=== PATIENT | female | born 1945 | race Caucasian/White ===

== ENCOUNTER 2018-07-21 12:11 | Day surgery (SDC) | payer MEDICARE, OTHER ==
[~2018-07-21] VITALS: Ht 167.6 cm; Wt 64.5 kg
[~2018-07-21 12:11] MED LIST: BARLEY LIFE; GARL1CAP11 PO; MULT-1085 PO; PANT40TA39 PO
[2018-07-21 12:18] VITALS: BP 134/71
[2018-07-21] MEDS ORDERED: LIDOcaine Viscous 15ml cup ONE (12:19)
[2018-07-21] MEDS ORDERED: MIDAZolam 5mg/5ml vial ONE (12:19)
[2018-07-21] MEDS ORDERED: fentaNYL/PF 50MCG/1 ML 2ML syringe ONE (12:19)
[2018-07-21] MEDS ORDERED: ASPI-611 PO (12:28)
[2018-07-21] MEDS ORDERED: OMEP40CA37 PO (12:28)
[2018-07-21] MEDS ORDERED: PANT40TA4 PO (12:29)
[2018-07-21] MEDS ORDERED: BARLEY PO (12:30)
[2018-07-21 13:26] VITALS: BP 123/72
[2018-07-21 13:36] VITALS: BP_SYST 115; BP_SYST 121; BP_DIAS 63; BP_DIAS 66
[2018-07-21 13:46] VITALS: BP 120/61
== END 2018-07-21 14:15 | disposition home or self-care (01) ==
LOC: GI LAB 12:11
PROVIDERS: ATTEND Internal Medicine Gastroenterology
DX: K21.9 Gastro-esophageal reflux disease without esophagitis (principal); I49.8 Other specified cardiac arrhythmias; Z87.891 Personal history of nicotine dependence; Z85.038 Personal history of other malignant neoplasm of large intestine; Z90.49 Acquired absence of other specified parts of digestive tract; Z72.89 Other problems related to lifestyle; Z90.710 Acquired absence of both cervix and uterus; Z79.82 Long term (current) use of aspirin; Z88.0 Allergy status to penicillin; Z98.890 Other specified postprocedural states; Z79.899 Other long term (current) drug therapy; Z82.0 Family history of epilepsy and other diseases of the nervous system; Z81.8 Family history of other mental and behavioral disorders
CPT/HCPCS: 43235; J2250; J3010; J7030; 99152; A4620